=== PATIENT | female | born 1950 | race Caucasian/White ===

== ENCOUNTER 2023-08-17 15:25 | Inpatient (IN) | payer OTHER, MEDICARE ==
[~2023-08-17] VITALS: Ht 157.5 cm; Wt 68.9 kg
[2023-08-17] MEDS: IBUPROFEN 400MG TABLET PO NR (15:45)
[2023-08-17] MEDS ORDERED: IBUPROFEN 400MG TABLET PO ONE (15:45)
[2023-08-17] MEDS: LIDOCAINE 5% PATCH TOP SCH (15:45)
[2023-08-17] MEDS ORDERED: ACETAMINOPHEN 325MG TABLET PO ONE (15:45)
[2023-08-17] MEDS: ACETAMINOPHEN 325MG TABLET PO NR (15:45)
[2023-08-17 17:16] LABS: BASOPHILS % 0.7 % (0.0-2.0); EOSINOPHILS % 2.4 % (0.0-5.0); HEMATOCRIT. 40.7 % (36.0-48.0); HEMOGLOBIN. 13.6 g/dL (12.0-16.0); LYMPHOCYTES % 17.5 % (20.0-50.0); MEAN CORPUSCULAR HEMOGLOBIN 30.8 pg (28.0-32.0); MEAN CORPUSCULAR HGB CONC 33.5 g/dL (31.0-37.0); MEAN PLATELET VOLUME 7.5 fl (7.4-10.4); MONOCYTES % 9.1 % (2.0-8.0); NEUTROPHILS % 70.3 % (40.0-76.0); PLATELET 309 x1000/uL (130-400); RED BLOOD CELL COUNT 4.42 mill/uL (4.2-5.4); RED CELL DISTRIBUTION WIDTH 14.2 % (11.6-14.6); WHITE BLOOD COUNT 6.8 x1000/uL (4.5-11.0)
[2023-08-17 17:19] LABS: CHLORIDE 105 mEq/L (98-107); POTASSIUM 3.6 mEq/L (3.5-5.1); SODIUM 139 mEq/L (136-145)
[2023-08-17 17:20] LABS: CALCIUM 10.6 mg/dL (8.7-10.4); CARBON DIOXIDE 27 mEq/L (21-32)
[2023-08-17 17:25] LABS: CREATININE 0.6 mg/dL (0.6-1.0); GLUCOSE 134 mg/dL (70-105); UREA NITROGEN BLOOD 12 mg/dL (9-23)
[2023-08-17 17:27] LABS: ALANINE AMINOTRANSFERASE 24 IU/L (10-49); ASPARTATE AMINOTRANSFERASE 25 IU/L (<34); BILIRUBIN TOTAL 0.6 mg/dL (0.1-1.0)
[2023-08-17 17:32] LABS: TROPONIN I HIGH SENSITIVITY 47 ng/L (3.0-34)
[2023-08-17 19:27] LABS: TROPONIN I HIGH SENSITIVITY 49 ng/L (3.0-34)
[2023-08-17] MEDS ORDERED: LISI20TA31 PO (21:23)
[2023-08-17] MEDS ORDERED: IPRATROPIUM/ALBUTEROL 0.5-3(2.5)MG/3ML NEB HHN PRN (21:30)
[2023-08-17] MEDS ORDERED: ACETAMINOPHEN 325MG TABLET PO PRN (21:30)
[2023-08-17] MEDS ORDERED: CLONIDINE 0.1MG TABLET PO PRN (21:30)
[2023-08-18] MEDS: AMLODIPINE 5MG TABLET PO SCH (00:37)
[2023-08-18] MEDS: PANTOPRAZOLE SODIUM 40 MG/VIAL IV SCH (00:37)
[2023-08-18] MEDS: KETOROLAC 15MG/ML VIAL IV NR (00:38)
[2023-08-18 08:00] VITALS: BP 136/78; PULSE 67; RESP 16; TEMP 97.8
[2023-08-18 08:55] VITALS: BP 136/78; PULSE 67; RESP 16; TEMP 97.8
[2023-08-18] MEDS: ASPIRIN 81MG EC TABLET PO SCH (09:50)
[2023-08-18] MEDS: LISINOPRIL 20MG TABLET PO SCH (09:50)
[2023-08-18] MEDS: ACETAMINOPHEN 325MG TABLET PO PRN (09:51)
[2023-08-18 11:44] LABS: CHLORIDE 105 mEq/L (98-107); POTASSIUM 3.6 mEq/L (3.5-5.1); SODIUM 141 mEq/L (136-145)
[2023-08-18 11:45] LABS: CALCIUM 10.2 mg/dL (8.7-10.4); CARBON DIOXIDE 26 mEq/L (21-32)
[2023-08-18 11:50] LABS: CREATININE 0.5 mg/dL (0.6-1.0); GLUCOSE 145 mg/dL (70-105); UREA NITROGEN BLOOD 16 mg/dL (9-23)
[2023-08-18 11:51] LABS: THYROID STIMULATING HORMONE 0.71 uIU/mL (0.55-4.78)
[2023-08-18 11:52] LABS: T4 FREE 1.16 ng/dL (0.89-1.76)
[2023-08-18 12:00] VITALS: BP 146/75; PULSE 72; RESP 18; TEMP 97.5
[2023-08-18 14:38] LABS: CLARITY URINE CLEAR (CLEAR); COLOR URINE YELLOW (YELLOW); GLUCOSE URINE NEGATIVE (NEGATIVE); KETONES URINE NEGATIVE (NEGATIVE); LEUKOCYTE ESTERASE URINE NEGATIVE (NEGATIVE); NITRITE URINE NEGATIVE (NEGATIVE); OCCULT BLOOD URINE NEGATIVE (NEGATIVE); PROTEIN URINE NEGATIVE (NEGATIVE); SPECIFIC GRAVITY URINE 1.007 (1.005-1.030); UROBILINOGEN URINE 0.2 E.U./dL (0.2-1.0)
[2023-08-18 14:47] LABS: *AMPHETAMINES SCREEN URINE NEGATIVE (NEGATIVE); *BARBITURATES SCREEN URINE NEGATIVE (NEGATIVE); *BENZODIAZEPINES SCREEN URINE NEGATIVE (NEGATIVE); *COCAINE SCREEN URINE NEGATIVE (NEGATIVE); METHADONE URINE SCREEN Neg (NEGATIVE)
[2023-08-18 14:48] LABS: CANNABINOID URINE SCREEN NEGATIVE (NEGATIVE); OPIATES URINE SCREEN NEGATIVE (NEGATIVE); PHENCYCLIDINE URINE SCREEN NEGATIVE (NEGATIVE)
[2023-08-18 14:52] LABS: ECSTASY MDMA SCREEN URINE NEGATIVE (NEGATIVE)
[2023-08-18] MEDS ORDERED: IOHEXOL-350 100 ML BOTTLE ONE (15:09)
[2023-08-18 16:00] VITALS: BP 131/78; PULSE 71; RESP 18; TEMP 98
[2023-08-18 20:00] VITALS: BP 139/79; PULSE 72; RESP 20; TEMP 97.7
[2023-08-18 21:31] LABS: TROPONIN I HIGH SENSITIVITY 51 ng/L (3.0-34)
[2023-08-18 21:37] LABS: HEPATITIS B SURFACE ANTIGEN NEGATIVE (Negative)
[2023-08-18 21:58] LABS: HEPATITIS C AB NON REACTIVE (Neg) (Negative)
[2023-08-19] VITALS (7 sets, daily range): BP systolic 119–141; BP diastolic 65–78; PULSE 63–75; RESP 18–21; TEMP 97.3–98.4
[2023-08-19 12:08] LABS: CREATINE KINASE MB FRACTION 0.8 ng/mL (0.5-3.6)
[2023-08-19] MEDS: DOCUSATE SODIUM 100MG CAPSULE PO SCH (13:04)
[2023-08-19 21:52] LABS: TROPONIN I HIGH SENSITIVITY 37 ng/L (3.0-34)
[2023-08-20] VITALS (7 sets, daily range): BP systolic 102–122; BP diastolic 59–77; PULSE 62–72; RESP 18–20; TEMP 97.1–98.6
[2023-08-20] MEDS: LACTULOSE 20G/30ML UDC PO PRN (09:43)
[2023-08-20] MEDS: ZOLPIDEM TARTRATE 5MG TABLET PO PRN (22:10)
[2023-08-21] VITALS: BP 106/68; PULSE 68; RESP 18; TEMP 97.5
[2023-08-21 04:00] VITALS: BP 96/59; PULSE 69; RESP 18; TEMP 98.2
[2023-08-21 08:00] VITALS: BP 133/78; PULSE 59; RESP 20; TEMP 97.9
[2023-08-21 12:00] VITALS: BP 129/68; PULSE 60; RESP 20; TEMP 97.9
[2023-08-21 15:08] VITALS: BP 129/68; PULSE 60; TEMP 97.7; O2SAT 99
== END 2023-08-21 17:27 | disposition short-term general hospital (02) | DRG 604 ==
LOC: ER 15:25 → 8WST 19:08
PROVIDERS: ADMIT Internal Medicine; ATTEND Internal Medicine
DX: S20.219A Contusion of unspecified front wall of thorax, initial encounter (principal); I21.A1 Myocardial infarction type 2; S26.91XA Contusion of heart, unspecified with or without hemopericardium, initial encounter; J45.909 Unspecified asthma, uncomplicated; I10 Essential (primary) hypertension; R73.9 Hyperglycemia, unspecified; M19.90 Unspecified osteoarthritis, unspecified site; K44.9 Diaphragmatic hernia without obstruction or gangrene; N20.0 Calculus of kidney; N28.1 Cyst of kidney, acquired; V89.2XXA Person injured in unspecified motor-vehicle accident, traffic, initial encounter; Y92.410 Unspecified street and highway as the place of occurrence of the external cause; Z79.899 Other long term (current) drug therapy; Z88.5 Allergy status to narcotic agent
CPT/HCPCS: 36415; 71046; 71260; 73560; 80048; 80053; 80305; 81003; 82550; 82553; 82962; 83880; 84439; 84443; 84484; 85025; 86705; 87340; 93005; 93306; 99291; C1893; C9113; Q9967